=== PATIENT | female | born 1960 | race Caucasian/White ===

== ENCOUNTER → 2016-06-07 | Outpatient (CLI) | payer OTHER ==
[~2016-06-07] MED LIST: GADOBUTROL 10 MMOL/10 ML VIAL ONE; HYDR-3240 PO; TRAZ50TA18 PO
== END | disposition home or self-care (01) ==
LOC: CFH 10:20
PROVIDERS: ATTEND Surgery
DX: N60.19 Diffuse cystic mastopathy of unspecified breast (principal); Z85.3 Personal history of malignant neoplasm of breast
CPT/HCPCS: A9585; C8908

== ENCOUNTER → 2017-08-15 | Outpatient (CLI) | payer OTHER | END | disposition home or self-care (01) | LOC: CFH 12:33 | PROVIDERS: ATTEND Surgery | DX: N60.11 Diffuse cystic mastopathy of right breast (principal); N60.12 Diffuse cystic mastopathy of left breast; Z80.3 Family history of malignant neoplasm of breast | CPT/HCPCS: A9585; C8908 ==